=== PATIENT | male | born 1980 | race African-American/Black ===

== ENCOUNTER 2018-04-30 08:24 | Emergency (ER) | payer SELFPAY ==
[2018-04-30 08:50] LABS: Absolute Lymphocytes (CBC) 1.6 K/uL (0.7-4.9); Absolute Monocytes 0.5 K/uL (0.1-1.3); Absolute Neutrophil 3.1 K/uL (1.8-8.0); Basophils % 0.7 % (0-1.3); Eosinophils % 9.2 % (0-4.4); Hematocrit 45.1 % (39.6-49.0); Lymphocytes % 28.3 % (15.3-44.8); MPV 7.7 fL (7.6-11.3); Monocytes % 8.5 % (3.3-12.3)
[2018-04-30 08:52] LABS: Protime INR 0.91
--- NOTE | 2018-04-30 09:06 | RAD REPORT ---
EXAM DESCRIPTION: CT - Head Brain Wo Cont - 04/30/2018 8:46 am CLINICAL HISTORY: Headache, hypertension, slurred speech COMPARISON: None. TECHNIQUE: Axial 5 mm thick images of the head were obtained without IV contrast. All CT scans are performed using dose optimization technique as appropriate and may include automated exposure control or mA/KV adjustment according to patient size. FINDINGS: No intracranial hemorrhage, mass, edema or shift of mid-line structures. No acute infarcti on changes seen. No abnormal extra-axial fluid collections. Ventricles are normal. Mastoid air cells and visualized portions of the paranasal sinuses are clear. No acute bony findings. IMPRESSION: Negative non-contrast CT head examination.
[2018-04-30 09:08] LABS: BUN Blood Urea Nitrogen 17 mg/dL (7-18); Bicarbonate 26 mmol/L (21-32); Glucose Level 103 mg/dL (74-106); Magnesium 2.1 mg/dL (1.8-2.4); NT PRO-BNP 20 pg/mL (<125); Potassium 4.1 mmol/L (3.5-5.1); Sodium Level 140 mmol/L (136-145); Troponin (Emerg Dept Use Only) < 0.02 ng/mL (0.0-0.045)
--- NOTE | 2018-04-30 09:41 | EKG ---
Test Date: 2018-04-30 Test Time: 08:49:36 Leather Currier: NANDINI MEASUREMENT RESULTS: Intervals: Rate: 60 MT: 172 QRSD: 86 QT: 368 QTc: 368 Iola: P: 71 MT: 172 QRS: 85 T: 75 INTERPRETIVE STATEMENTS: Normal sinus rhythm Normal ECG No previous ECG available for comparison Electronically Signed On 04-30-18 09:40:38 ADDRESSER by Chuckie Adams
[2018-04-30] MEDS ORDERED: GABAPENTIN 300 MG CAP ONE (11:04)
--- NOTE | 2018-04-30 11:12 | RAD REPORT ---
EXAM DESCRIPTION: RAD - Chest Single View - 04/30/2018 9:15 am CLINICAL HISTORY: Chest pain COMPARISON: None. TECHNIQUE: AP portable chest image was obtained 0854 hours . FINDINGS: Lungs are clear. Heart and vasculature are normal. No measurable pleural effusion and no p neumothorax. No acute bony abnormality seen. No acute aortic findings suspected. IMPRESSION: No acute cardiopulmonary process.
--- NOTE | 2018-04-30 11:14 | EDPHYS ---
Physician Documentation [facility] Name: Supriya Carmona Age: 37 yrs Sex: Male : 1980 Arrival Date: 04/30/2018 Time: 08:25 Bed 6 Private MD: None, None ED Physician Alec Jeong HPI: 04/30 08:44 This 37 yrs old Black Male presents to ER via Unassigned with complaints of Chest Pain. kb 08:44 The patient or guardian reports chest pain that is located primarily in the anterior kb chest wall, left. The pain does not radiate. Associated signs and symptoms: The patient has no apparent associated signs or symptoms. The chest pain is described as tightness. Duration: The patient or guardian reports multiple episodes, that wax and wane, with no pattern. Modifying factors: The symptoms are alleviated by nothing. the symptoms are aggravated by nothing. Severity of pain: At its worst the pain was moderate in the emergency department the pain has improved. The patient has not experienced similar symptoms in the past. The patient has not recently seen a physician. Pt c/o chest pain that has been intermittent for 2 weeks. Also reports numbness and pain in right arm for 2 months. States he came in today because he can't take it anymore, it's hard to use his right hand.. Historical: - Allergies: 08:45 No Known Allergies; ss - Home Meds: 08:45 aspirin 81 mg Oral TbEC 1 tab once daily [Active]; ss - PMHx: 08:45 ADD/ADHD; ss - PSHx: 08:45 None; ss - Immunization history:: Adult Immunizations up to date. - Social history:: Smoking status: Patient uses tobacco products, denies chronic smoking, but will smoke occasionally. - Ebola Screening: : Patient denies exposure to infectious person Patient denies travel to an Ebola-affected area in the 21 days before illness onset. ROS: 08:44 Constitutional: Negative for fever, chills, and weight loss, ENT: Negative for injury, kb pain, and discharge, Neck: Negative for injury, pain, and swelling, Respiratory: Negative for shortness of breath, cough, wheezing, and pleuritic chest pain, Abdomen/GI: Negative for abdominal pain, nausea, vomiting, diarrhea, and constipation, Back: Negative for injury and pain, : Negative for injury, bleeding, discharge, and swelling, MS/Extremity: Negative for injury and deformity, Skin: Negative for injury, rash, and discoloration. 08:44 Cardiovascular: Positive for chest pain, Negative for edema, orthopnea, palpitations, paroxysmal nocturnal dyspnea. 08:44 Neuro: Positive for numbness, of the right arm. Exam: 08:44 Constitutional: This is a well developed, well nourished patient who is awake, alert, kb and in no acute distress. Head/Face: Normocephalic, atraumatic. ENT: Nares patent. No nasal discharge, no septal abnormalities noted. Tympanic membranes are normal and external auditory canals are clear. Oropharynx with no redness, swelling, or masses, exudates, or evidence of obstruction, uvula midline. Mucous membranes moist. Neck: Trachea midline, no thyromegaly or masses palpated, and no cervical lymphadenopathy. Supple, full range of motion without nuchal rigidity, or vertebral point tenderness. No Meningismus. Chest/axilla: Normal chest wall appearance and motion. Nontender with no deformity. No lesions are appreciated. Cardiovascular: Regular rate and rhythm with a normal S1 and S2. No gallops, murmurs, or rubs. Normal PMI, no JVD. No pulse deficits. Respiratory: Lungs have equal breath sounds bilaterally, clear to auscultation and percussion. No rales, rhonchi or wheezes noted. No increased work of breathing, no retractions or nasal flaring. Abdomen/GI: Soft, non-tender, with normal bowel sounds. No distension or tympany. No guarding or rebound. No evidence of tenderness throughout. Skin: Warm, dry with normal turgor. Normal color with no rashes, no lesions, and no evidence of cellulitis. MS/ Extremity: Pulses equal, no cyanosis. Neurovascular intact. Full, normal range of motion. Neuro: Awake and alert, GCS 15, oriented to person, place, time, and situation. Cranial nerves II-XII grossly intact. Motor strength 5/5 in left extremities and RLE, 3/5 in Right hand. Sensory grossly intact. Cerebellar exam normal. Normal gait. Vital Signs: 08:45 BP 157 / 87; Pulse 67; Resp 15; Temp 97.3(TE); Pulse Ox 100% on R/A; Weight 107.95 kg; ss Height 5 ft. 10 in. (177.80 cm); Pain 7/10; 09:35 BP 132 / 89; Pulse 63; Resp 20; Pulse Ox 100% ; sv 10:22 BP 141 / 94; Pulse 72; Resp 16; Pulse Ox 99% ; sv 08:45 Body Mass Index 34.15 (107.95 kg, 177.80 cm) ss MDM: 08:28 Patient medically screened. kb 08:50 Data reviewed: vital signs, nurses notes. Data interpreted: Pulse oximetry: on room air kb is 100 %. Interpretation: normal. 11:03 Counseling: I had a detailed discussion with the patient and/or guardian regarding: the kb historical points, exam findings, and any diagnostic results supporting the discharge/admit diagnosis, lab results, radiology results, the need for outpatient follow up, a electric solderer, a neurologist, to return to the emergency department if symptoms worsen or persist or if there are any questions or concerns that arise at home. 04/30 08:32 Order name: Basic Metabolic Panel; Complete Time: 09:10 kb 04/30 08:32 Order name: CBC with Diff; Complete Time: 08:56 kb 04/30 08:32 Order name: Magnesium; Complete Time: 09:10 kb 04/30 08:32 Order name: NT PRO-BNP; Complete Time: 09:10 kb 04/30 08:32 Order name: PT-INR; Complete Time: 08:56 kb 04/30 08:32 Order name: Troponin (emerg Dept Use Only); Complete Time: 09:10 kb 04/30 08:32 Order name: XRAY Chest (1 view); Complete Time: 11:13 kb 04/30 08:32 Order name: EKG; Complete Time: 08:33 kb 04/30 08:32 Order name: Cardiac monitoring; Complete Time: 08:55 kb 04/30 08:32 Order name: EKG - Nurse/Tech; Complete Time: 08:56 kb 04/30 08:32 Order name: CT Head Brain wo Cont; Complete Time: 09:07 kb 04/30 10:20 Order name: EKG; Complete Time: 10:21 kb 04/30 10:20 Order name: Troponin (emerg Dept Use Only); Complete Time: 10:56 kb 04/30 08:32 Order name: IV Saline Lock; Complete Time: 08:55 kb 04/30 08:32 Order name: Labs collected and sent; Complete Time: 08:55 kb 04/30 08:32 Order name: O2 Per Protocol; Complete Time: 08:55 kb 04/30 08:32 Order name: O2 Sat Monitoring; Complete Time: 08:56 kb 04/30 10:20 Order name: EKG - Nurse/Tech; Complete Time: 11:14 kb Administered Medications: 10:53 Drug: Neurontin 300 mg Route: PO; sg 11:14 Follow up: Response: No adverse reaction sg Disposition: 05/01 07:33 Co-signature as Attending Physician, Alec Jeong MD I agree with the assessment and kdr plan of care. Disposition: 04/30/18 11:14 Discharged to Home. Impression: Chest pain, unspecified, Neuralgia and neuritis, unspecified. - Condition is Stable. - Discharge Instructions: Neuropathic Pain, Nonspecific Chest Pain, [id number]. - Prescriptions for Neurontin 300 mg Oral Capsule - take 1 capsule by ORAL route At bedtime; 20 capsule. Prednisone 20 mg Oral Tablet - take 1 tablet by ORAL route once daily for 5 days; 5 tablet. - Medication Reconciliation Form, Thank You Letter, Antibiotic Education, Prescription Opioid Use, Work release form form. - Follow up: Emergency Department; When: As needed; Reason: Worsening of condition. Follow up: Private Physician; When: 2 - 3 days; Reason: Recheck today's complaints, Continuance of care, Re-evaluation by your physician. Signatures: Dispatcher [employer] [facility] Cici Flores, SOUND DESIGNER-C SOUND DESIGNER-Phill Isidro RN RN Alec Connell MD MD [facility] Vargas RN RN ss Corrections: (The following items were deleted from the chart) 04/30 11:26 11:14 04/30/2018 11:14 Discharged to Home. Impression: Chest pain, unspecified; sg Neuralgia and neuritis, unspecified. Condition is Stable. Discharge Instructions: Neuropathic Pain, Nonspecific Chest Pain, [id number]. Forms are Medication Reconciliation Form, Thank You Letter, Antibiotic Education, Prescription Opioid Use. Follow up: Emergency Department; When: As needed; Reason: Worsening of condition. Follow up: Private Physician; When: 2 - 3 days; Reason: Recheck today's complaints, Continuance of care, Re-evaluation by your physician. kb
--- NOTE | 2018-04-30 11:14 | ER ---
Nurse's Notes [facility] Name: Supriya Carmona Age: 37 yrs Sex: Male : 1980 Arrival Date: 04/30/2018 Time: 08:25 Bed 6 Private MD: None, None Diagnosis: Chest pain, unspecified;Neuralgia and neuritis, unspecified Presentation: 04/30 08:35 Presenting complaint: Patient states: Intermittent R arm pain and tingling x " a few ss months" and intermittent substernal chest discomfort x 1 week. Transition of care: patient was not received from another setting of care. Onset of symptoms is unknown. Risk Assessment: Do you want to hurt yourself or someone else? Patient reports no desire to harm self or others. Initial Sepsis Screen: Does the patient meet any 2 criteria? No. Patient's initial sepsis screen is negative. Does the patient have a suspected source of infection? No. Patient's initial sepsis screen is negative. Care prior to arrival: None. 08:35 Method Of Arrival: Ambulatory ss 08:35 Acuity: ROB 3 ss Historical: - Allergies: 08:45 No Known Allergies; ss - Home Meds: 08:45 aspirin 81 mg Oral TbEC 1 tab once daily [Active]; ss - PMHx: 08:45 ADD/ADHD; ss - PSHx: 08:45 None; ss - Immunization history:: Adult Immunizations up to date. - Social history:: Smoking status: Patient uses tobacco products, denies chronic smoking, but will smoke occasionally. - Ebola Screening: : Patient denies exposure to infectious person Patient denies travel to an Ebola-affected area in the 21 days before illness onset. Screenin:55 Abuse screen: Denies threats or abuse. Denies injuries from another. Nutritional sg screening: No deficits noted. Tuberculosis screening: No symptoms or risk factors identified. Never had TB. Fall Risk None identified. Assessment: 08:56 Reassessment: Patient appears in no apparent distress at this time. General: Appears in sg no apparent distress. comfortable, well groomed, well developed, well nourished, Behavior is calm, cooperative, appropriate for age. Pain: Complains of pain in chest Pain radiates to right arm Quality of pain is described as tingling. Neuro: Level of Consciousness is awake, alert, obeys commands, Oriented to person, place, time, situation, Microbiology Lab Assistant are equal bilaterally Moves all extremities. Full function Gait is steady, Speech is normal, Facial symmetry appears normal, Pupils are PERRLA, Reports tingling in right arm, and right hand that started about two weeks ago. Cardiovascular: Capillary refill is brisk in bilateral fingers Patient's skin is warm and dry. Chest pain is described as vague. Respiratory: Airway is patent Respiratory effort is even, unlabored, Respiratory pattern is regular, symmetrical, Denies cough, shortness of breath labored breathing, pain with respiration, pain with cough, pain with movement, air hunger. GI: No signs and/or symptoms were reported involving the gastrointestinal system. : No signs and/or symptoms were reported regarding the genitourinary system. EENT: Throat is clear. Derm: Skin is pink, warm \\T\\ dry. Musculoskeletal: No signs and/or symptoms reported regarding the musculoskeletal system. Vital Signs: 08:45 BP 157 / 87; Pulse 67; Resp 15; Temp 97.3(TE); Pulse Ox 100% on R/A; Weight 107.95 kg; ss Height 5 ft. 10 in. (177.80 cm); Pain 7/10; 09:35 BP 132 / 89; Pulse 63; Resp 20; Pulse Ox 100% ; sv 10:22 BP 141 / 94; Pulse 72; Resp 16; Pulse Ox 99% ; sv 08:45 Body Mass Index 34.15 (107.95 kg, 177.80 cm) ED Course: 08:25 Patient arrived in ED. sb2 08:27 None, None is Private Physician. sb2 08:28 Cici Flores FNP-C is [facility]. kb 08:28 Alec Jeong MD is Attending Physician. kb 08:40 Initial lab(s) drawn, by me, sent to lab. Inserted saline lock: 20 gauge in right sg antecubital area, using aseptic technique. Blood collected. Patient maintains SpO2 saturation greater than 95% on room air. 08:[address] via stretcher. sv 08:44 Phill Buckley, CHRISTOPHE is Primary Nurse. sg 08:45 Triage completed. ss 08:45 Arm band placed on right wrist. ss 08:46 CT Head Brain wo Cont In Process Unspecified. EDMS 08:55 X-ray(s) taken. sv 09:15 XRAY Chest (1 view) Sent. sv 09:16 XRAY Chest (1 view) In Process Unspecified. EDMS 09:36 Awaiting radiology results. sv 10:20 Repeat lab(s) drawn. by ky, sent to lab. sg Administered Medications: 10:53 Drug: Neurontin 300 mg Route: PO; sg 11:14 Follow up: Response: No adverse reaction sg Outcome: 11:14 Discharge ordered by . kb 11:26 Patient left the ED. sg Signatures: Dispatcher [employer] [facility] Cici Flores, RECLAMATION FURNACE OPERATOR-C RECLAMATION FURNACE OPERATOR-Gavi Holland, RN RN Phill Lopez RN RN sg Smirch, Shelby, RN RN ss Billeau, Sheri sb2
--- NOTE | 2018-04-30 17:17 | EKG ---
Test Date: 2018-04-30 Test Time: 11:02:42 Production Control Technologist: [place] MEASUREMENT RESULTS: Intervals: Rate: 58 LA: 158 QRSD: 80 QT: 378 QTc: 371 Butler: P: 42 LA: 158 QRS: 64 T: 52 INTERPRETIVE STATEMENTS: Sinus bradycardia Otherwise normal ECG Compared to ECG 04/30/2018 08:49:36 Sinus rhythm no longer present Electronically Signed On 04-30-18 17:16:06 INDIVIDUAL SMALL GROUP INSTRUCTOR by Chuckie Adams
== END 2018-04-30 11:26 | disposition home or self-care (01) ==
LOC: ER 08:24
DX: M79.2 Neuralgia and neuritis, unspecified (principal); Z79.82 Long term (current) use of aspirin
CPT/HCPCS: 36415; 70450; 71045; 80048; 83735; 83880; 84484; 85025; 85610; 93005; 99285

== ENCOUNTER 2024-02-10 07:00 | Inpatient (IN) | payer BC ==
[2024-02-10] MEDS ORDERED: DIPHENHYDRAMINE 50 MG/ML VIAL ONE (07:12)
[2024-02-10] MEDS ORDERED: EPINEPHRINE 1 MG/ML VIAL ONE (07:12)
[2024-02-10] MEDS ORDERED: METHYLPREDNISOLONE 125 MG INJ ONE (07:12)
[2024-02-10] MEDS ORDERED: FAMOTIDINE 20 MG/2 ML VIAL IV ONE (07:12)
[2024-02-10] MEDS ORDERED: TRANEXAMIC ACID 1,000 MG/10 ML VIAL IV ONE (07:44)
[2024-02-10] MEDS ORDERED: NA CHLORIDE 0.9% 100 ML ONE (07:44)
[2024-02-10 08:05] LABS: Absolute Eosinophils 0.2 K/uL (0-0.5); Absolute Lymphocytes (CBC) 1.7 K/uL (0.7-4.9); Absolute Monocytes 0.4 K/uL (0.1-1.3); Absolute Neutrophil 5.2 K/uL (1.8-8.0); Basophils % 0.6 % (0-1.3); Hematocrit 43.9 % (39.6-49.0); Hemoglobin 14.7 g/dL (13.6-17.9); Lymphocytes % 22.9 % (15.3-44.8); MCH 29.8 pg (27.0-35.0); MCHC 33.4 g/dL (32.0-36.0); MCV 89.3 fL (80-100); MPV 7.1 fL (7.6-11.3); Monocytes % 5.9 % (3.3-12.3); Neutrophils % 68.6 % (41.7-73.7); Nucleated Red Blood Cells % 0.1 % (0-0); Platelets 365 thou/uL (152-406); RBC Red Blood Cell Count 4.92 M/uL (4.33-5.43)
[2024-02-10 08:08] LABS: Anion Gap 7.8 mEq/L (5.0-15.0); Potassium 3.8 mEq/L (3.5-5.1)
--- NOTE | 2024-02-10 09:30 | ER ---
Nurse's Notes [facility] Name: Supriya Carmona Age: 43 yrs Sex: Male : 1980 Arrival Date: 02/10/2024 Time: 07:00 Bed 14 Private MD: Diagnosis: Adverse effect of dkshoclahyh-crsbnomirl-rjgyon inhibitors;Angioedema Presentation: 02/09 07:25 Chief complaint: Patient states: INCREASED LIP AND MOUTH SWELLING SINCE LAST PM WITH bp "SCRATCHY THROAT". Coronavirus screen: At this time, the client does not indicate any symptoms associated with coronavirus-19. Ebola Screen: No symptoms or risks identified at this time. Onset: The symptoms/episode began/occurred gradually. Anaphylaxis evaluation, the patient reports or I have noted the following symptoms which indicate a significant risk of anaphylaxis: angioedema. Initial Sepsis Screen: Does the patient meet any 2 criteria? No. Patient's initial sepsis screen is negative. Does the patient have a suspected source of infection? No. Patient's initial sepsis screen is negative. Risk Assessment: Do you want to hurt yourself or someone else? Patient reports no desire to harm self or others. Onset of symptoms was February 09, 2024 at 18:30. 07:25 Method Of Arrival: Ambulatory bp 07:25 Acuity: ROB 2 bp 07:26 Coronavirus screen: At this time, the client does not indicate any symptoms associated iw with coronavirus-19. Ebola Screen: No symptoms or risks identified at this time. Anaphylaxis evaluation, angioedema. Initial Sepsis Screen: Does the patient meet any 2 criteria? No. Patient's initial sepsis screen is negative. Does the patient have a suspected source of infection? No. Patient's initial sepsis screen is negative. Risk Assessment: Do you want to hurt yourself or someone else? Patient reports no desire to harm self or others. 07:26 Acuity: ROB 2 iw 07:26 Method Of Arrival: Ambulatory iw Triage Assessment: 07:27 General: Appears distressed, uncomfortable, obese, Behavior is cooperative, appropriate bp for age, anxious. Pain: Denies pain. EENT: Oral mucosa is dry. ANGIOEDEMA. Neuro: No deficits noted. Cardiovascular: No deficits noted. Respiratory: No deficits noted. GI: No signs and/or symptoms were reported involving the gastrointestinal system. : No signs and/or symptoms were reported regarding the genitourinary system. Derm: No deficits noted. Musculoskeletal: No deficits noted. Historical: - Allergies: 07:27 No Known Allergies; bp - Home Meds: 07:27 amlodipine oral [Active]; Lisinopril Oral [Active]; carvedilol oral [Active]; bp - PMHx: 07:27 ADD/ADHD; Hypertensive disorder; bp - Immunization history:: Adult Immunizations up to date. - Infectious Disease History:: Denies. - Social history:: Smoking status: Patient denies any tobacco usage or history of. Screenin:34 [facility] ED Fall Risk Assessment (Adult) History of falling in the last 3 months, iw including since admission No falls in past 3 months (0 pts) Confusion or Disorientation No (0 pts) Intoxicated or Sedated No (0 pts) Impaired Gait No (0 pts) Mobility Assist Device Used No (0 pt) Altered Elimination No (0 pt) Score/Fall Risk Level 0 - 2 = Low Risk Oriented to surroundings, Maintained a safe environment. Abuse screen: Denies threats or abuse. Nutritional screening: No deficits noted. Tuberculosis screening: No symptoms or risk factors identified. Assessment: 07:18 General: Appears in no apparent distress. Behavior is cooperative. Pain: Complains of iw pain in face. Respiratory: Airway is patent Respiratory effort is even, unlabored, GI: Abdomen is non-distended. Derm: Derm: Skin is pink, warm \\T\\ dry. normal, lip swelling. Musculoskeletal: Range of motion: intact in all extremities. 08:20 Reassessment: Patient appears in no apparent distress at this time. Patient and/or iw family updated on plan of care and expected duration. Pain level reassessed. Patient is alert, oriented x 3, equal unlabored respirations, skin warm/dry/pink. 10:30 Reassessment: Patient appears in no apparent distress at this time. No changes from cm10 previously documented assessment. Patient and/or family updated on plan of care and expected duration. Pain level reassessed. Patient is alert, oriented x 3, equal unlabored respirations, skin warm/dry/pink. General: Appears in no apparent distress. comfortable, Behavior is calm, cooperative. Respiratory: No deficits noted. Airway is patent Respiratory effort is even, unlabored, Respiratory pattern is regular, symmetrical. Derm: Swelling noted to patient's lips. 11:13 General: FFP transfusion started at this time.. cm10 15:37 General: Attempted to call report, per Vasiliy in ICU, bed is not ready yet.. cm10 Vital Signs: 07:16 BP 127 / 86; Pulse 80; Resp 16; Pulse Ox 97% on R/A; iw 11:00 BP 123 / 84; Pulse 80; Resp 16; Pulse Ox 92% on R/A; cm10 11:30 BP 119 / 84; Pulse 80; Resp 16; Pulse Ox 92% on R/A; cm10 11:45 BP 126 / 77; Pulse 79; Resp 19; Pulse Ox 94% on R/A; cm10 12:30 BP 123 / 82; Pulse 82; Resp 19; Pulse Ox 93% ; cm10 13:00 BP 116 / 75; Pulse 84; Resp 19; Pulse Ox 93% ; cm10 14:00 BP 124 / 74; Pulse 80; Resp 19; Pulse Ox 95% on R/A; cm10 ED Course: 07:08 Patient arrived in ED. al5 07:08 Jose Enrique Torres DO is Attending Physician. ms3 07:09 Josseline Ba, RN is Primary Nurse. iw 07:15 Inserted saline lock: 20 gauge in right antecubital area, using aseptic technique. iw ,using aseptic technique. IV inserted by CHRISTOPHE Wilcox Flushed with 10 mL NS. 07:26 Triage completed. iw 07:27 Arm band placed on. bp 07:45 BMP Sent. cc6 07:45 CBC with Diff Sent. cc6 07:47 Initial lab(s) drawn, by me, sent to lab. am7 09:03 Bb Add On Sent. zm 09:03 Type And Screen Sent. zm 09:03 T\\T\\S collected, blood band applied to patient. zm 09:29 Chirag Mullins MD is Hospitalizing Provider. ms3 10:03 No provider procedures requiring assistance completed. iw 10:03 Patient has correct armband on for positive identification. Client placed on continuous iw cardiac and pulse oximetry monitoring. NIBP monitoring applied. nuclear monitoring technician on. 10:03 Provided Education on: FFP infusion. iw 10:41 Primary Nurse role handed off by Josseline Ba, RN cm10 10:41 Samantha Truong, RN is Primary Nurse. cm10 11:29 [id number] CM met with Mr. Carmona and his Abebe at the bedside in the ED exam ane room. Patient identified by name and . Demographic sheet confirmed. Patient states he lives with his in a single story home. He reports that prior to admission, he performs ADLs independently. No DME, no HH, No home oxygen or other medical services at this time. Patient reports he does not have an MPOA in place but does have a living will, he goes on to state, " She knows what I would want.", and points to Abebe at the bedside. His plan is to return home upon discharge and states he will transport him home. CM team will continue to follow and coordinate care during this hospital stay. 11:47 Report faxed at [phone]. Attempted to call X2 with no answer. cm10 14:18 Patient admitted, IV remains in place. cm10 Administered Medications: 07:21 Drug: diphenhydrAMINE IVP 50 mg IVP once Route: IVP; Site: right antecubital; iw 08:20 Follow up: Response: No adverse reaction iw 07:21 Drug: MethylPrednisoLONE IVP 125 mg IVP once Route: IVP; Site: right antecubital; iw 08:20 Follow up: Response: No adverse reaction iw 07:21 Drug: Famotidine IVP 20 mg IVP once; dilute with 10 mL 0.9% NaCl; give over 2 minutes iw Route: IVP; Site: right antecubital; 12:03 Follow up: Response: No adverse reaction cm10 07:21 Drug: EPINEPHrine 0.3 mg IM once Route: IM; Site: right deltoid; iw 10:04 Follow up: Response: No adverse reaction iw 07:45 Drug: tranexamic acid 1 grams IV at calculated rate once Route: IV; Rate: calculated iw rate; Site: right antecubital; 08:45 Follow up: IV Status: Completed infusion iw Medication: 07:19 VIS not applicable for this client. iw 11:43 Blood products: FFP X 1 unit given. Pt tolerated transfusion well. No S/S of cm10 transfusion reaction. See transfusion record. Outcome: 09:29 Decision to Hospitalize by Provider. ms3 14:18 Admitted to ER Hold. Please see [facility] for further documentation. cm10 14:18 Condition: stable 14:18 Instructed on the need for admit, 18:30 Patient left the ED. cm10 Signatures: Josseline Ba, RN RN iw Brenden San RN RN Jose Enrique Damon, DO VALADEZ ms3 Jenn Truong Clarissa, RN RN cm10 Zoey Bush RN RN al5 Akila Sierra cc6 Sirena Da Silva RN RN ane Muraira, Abigail am7 Corrections: (The following items were deleted from the chart) 11:46 11:43 Blood products: FFP X 1 unit given. cm10 cm10
--- NOTE | 2024-02-10 09:30 | EDPHYS ---
Physician Documentation [facility] Name: Supriya Carmona Age: 43 yrs Sex: Male : 1980 Arrival Date: 02/10/2024 Time: 07:00 Bed 14 Private MD: ED Physician Jose Enrique Torres HPI: 02/09 08:02 This 43 yrs old Black Male presents to ER via Ambulatory with complaints of Allergic ms3 Reaction. 08:02 43-year-old male with past medical history of ADD/ADHD, hypertension presents to the [facility] emergency department for swelling of his lips and dry mouth that has been ongoing for 13 hours and progressed through the night. Patient states his lips have mildly decreased since onset. Patient states he is having severe pain in his lips.. Historical: - Allergies: : No Known Allergies; bp - Home Meds: :27 amlodipine oral [Active]; Lisinopril Oral [Active]; carvedilol oral [Active]; bp - PMHx: :27 ADD/ADHD; Hypertensive disorder; bp - Immunization history:: Adult Immunizations up to date. - Infectious Disease History:: Denies. - Social history:: Smoking status: Patient denies any tobacco usage or history of. ROS: 08:23 Constitutional: Negative for fever, and chills. Neck: Negative for injury, pain, and ms3 swelling, Cardiovascular: Negative for chest pain, and palpitations. Respiratory: Negative for shortness of breath, cough, wheezing, and pleuritic chest pain, Abdomen/GI: Negative for abdominal pain, nausea, vomiting, diarrhea, and constipation, 08:23 ENT: Positive for lip swelling, Exam: 08:23 Constitutional: This is a well developed, well nourished patient who is awake, alert, ms3 and in no acute distress. 08:23 Cardiovascular: Regular rate and rhythm with a normal S1 and S2. No gallops, murmurs, or rubs. Normal PMI, no JVD. No pulse deficits. Respiratory: Lungs have equal breath sounds bilaterally, clear to auscultation and percussion. No rales, rhonchi or wheezes noted. No increased work of breathing, no retractions or nasal flaring. Abdomen/GI: Soft, non-tender, with normal bowel sounds. No distension or tympany. No guarding or rebound. No evidence of tenderness throughout. Skin: Warm, dry with normal turgor. Normal color with no rashes, no lesions, and no evidence of cellulitis. MS/ Extremity: Pulses equal, no cyanosis. Neurovascular intact. Full, normal range of motion. 08:23 ENT: Mouth: Lips: Upper and lower lip swelling, Vital Signs: 07:16 BP 127 / 86; Pulse 80; Resp 16; Pulse Ox 97% on R/A; iw 11:00 BP 123 / 84; Pulse 80; Resp 16; Pulse Ox 92% on R/A; cm10 11:30 BP 119 / 84; Pulse 80; Resp 16; Pulse Ox 92% on R/A; cm10 11:45 BP 126 / 77; Pulse 79; Resp 19; Pulse Ox 94% on R/A; cm10 12:30 BP 123 / 82; Pulse 82; Resp 19; Pulse Ox 93% ; cm10 13:00 BP 116 / 75; Pulse 84; Resp 19; Pulse Ox 93% ; cm10 14:00 BP 124 / 74; Pulse 80; Resp 19; Pulse Ox 95% on R/A; cm10 MDM: 07:20 Patient medically screened. ms3 08:23 Differential diagnosis: anaphylaxis, angioedema, Hereditary Angioedema. ms3 09:30 Data reviewed: vital signs, nurses notes, lab test result(s), and as a result, I will ms3 discharge patient. Consideration of Admission/Observation Patient was admitted/placed on observation. Management of patient was discussed with the following: Hospitalist: Dr Mullisn. I considered the following discharge prescriptions or medication management in the emergency department Medications were administered in the Emergency Department. See MAR. Care significantly affected by the following chronic conditions: Hypertension. Counseling: I had a detailed discussion with the patient and/or guardian regarding the historical points, exam findings, and any diagnostic results supporting the discharge/admit diagnosis, lab results, the need for further work-up and treatment in the hospital. ED course: Patient with mild improvement in his symptoms since arrival to the emergency department. Discussed case with hospitalist team and they accept patient to ICU to continue monitoring. Discussed plan with patient and he understands and agrees with plan. All questions were answered.. 02/09 07:21 Order name: CBC with Diff; Complete Time: 09:22 ms3 02/09 07:21 Order name: BMP; Complete Time: 09:22 ms3 02/09 07:37 Order name: Type And Screen ms3 02/09 07:52 Order name: Bb Add On ms3 02/09 09:20 Order name: Fresh Frozen Plasma EDMS 02/09 09:35 Order name: ABO/RH no charge; Complete Time: 17:25 EDMS Administered Medications: 07:21 Drug: diphenhydrAMINE IVP 50 mg IVP once Route: IVP; Site: right antecubital; iw 08:20 Follow up: Response: No adverse reaction iw 07:21 Drug: MethylPrednisoLONE IVP 125 mg IVP once Route: IVP; Site: right antecubital; iw 08:20 Follow up: Response: No adverse reaction iw 07:21 Drug: Famotidine IVP 20 mg IVP once; dilute with 10 mL 0.9% NaCl; give over 2 minutes iw Route: IVP; Site: right antecubital; 12:03 Follow up: Response: No adverse reaction cm10 07:21 Drug: EPINEPHrine 0.3 mg IM once Route: IM; Site: right deltoid; iw 10:04 Follow up: Response: No adverse reaction iw 07:45 Drug: tranexamic acid 1 grams IV at calculated rate once Route: IV; Rate: calculated iw rate; Site: right antecubital; 08:45 Follow up: IV Status: Completed infusion iw Disposition Summary: 02/10/24 09:29 Hospitalization Ordered Notes: Hospitalization Status: Observation ms3 Provider: Chirag Mullins ms3 Condition: Stable ms3 Problem: new ms3 Symptoms: are unchanged ms3 Bed/Room Type: Standard ms3 Location: Telemetry/MedSurg (Inpatient)(02/10/24 17:49) ja Room Assignment: 216(02/10/24 17:49) ja Diagnosis - Adverse effect of rhkoheoctwv-tqkqnfoqnw-qmbert inhibitors ms3 - Angioedema ms3 Forms: - Medication Reconciliation Form ms3 - SBAR form ms3 - Leadership Thank You Letter ms3 Critical care time excluding procedures: :31 Critical care time: Bedside Care: 40 minutes, Consultation: 5 minutes, Family ms3 Intervention: 5 minutes. Total time: 50 minutes Signatures: Dispatcher [employer] Crissy Cheung Irene, RN RN iw Aguilar, Jose, RN RN ja1 Brenden San, RN RN bp Jose Enrique Torres, DO ms3 Alejandrina Larsen, RN RN kb3 Samantha Truong RN cm10 Corrections: (The following items were deleted from the chart) 07:21 07:21 CBC+H.LAB.BRZ ordered. EDMS EDMS 07:21 07:21 BASIC METABOLIC PANEL+C.LAB.BRZ ordered. EDMS EDMS 07:37 07:37 TYPE AND SCREEN+BB.LAB.BRZ ordered. EDMS EDMS 11:11 09:29 Intensive Care Unit ms3 bd 11:11 09:29 ms3 bd 11:29 11:11 BR ER HOLD bd bd 11:29 11:11 ERHOLD- bd bd 12:05 11:29 Telemetry/MedSurg (observation) bd ja1 12:05 11:29 228 bd ja1 15:24 12:05 [facility] ER HOLD ja1 bd 15:24 12:05 ERHOLD- ja1 bd 15:52 15:24 Intensive Care Unit bd ja1 15:52 15:24 6- bd ja1 17:49 15:52 BR ER HOLD ja1 kb3 17:49 15:52 ERHOLD- ja1 kb3 17:49 17:49 Telemetry/MedSurg (observation) kb3 ja1 17:49 17:49 216 kb3 ja1
[2024-02-10] MEDS ORDERED: NA CHLORIDE 0.9% 250 ML ONE (11:04)
[2024-02-10] MEDS ORDERED: ONDANSETRON 4 MG/2 ML VIAL IV PRN (13:41)
[2024-02-10] MEDS: NA CHLORIDE 0.9% 1,000 ML IV SCH (13:41)
[2024-02-10] MEDS ORDERED: NICOTINE 21 MG/PAT TD ONE (13:50)
[2024-02-10] MEDS ORDERED: NA CHLORIDE 0.9% 1,000 ML ONE (13:50)
[2024-02-10] MEDS: NICOTINE 21 MG/PAT TD SCH (13:59)
[2024-02-10] MEDS ORDERED: NICOTINE 14 MG/PAT TD SCH (14:00)
[2024-02-10] MEDS ORDERED: DIPHENHYDRAMINE 25 MG TAB/CAP ONE (14:23)
[2024-02-10] MEDS: DIPHENHYDRAMINE 25 MG TAB/CAP PO SCH (14:27)
--- NOTE | 2024-02-10 14:37 | P.HP ---
Certification for Inpatient Patient admitted to: Inpatient With expected LOS: >2 Midnights Patient will require the following post-hospital care: None Practitioner: I am a practitioner with admitting privileges, knowledge of patient current condition, hospital course, and medical plan of care. Services: Services provided to patient in accordance with Admission requirements found in Title 42 Section 412.3 of the Code of Federal Regulations Patient History Date of Service: 02/10/24 Reason for admission: Angioedema History of Present Illness: 43-year-old male with history of hypertension, ADD presents to the emergency department with chief complaint of lip swelling. He reports his symptoms began last night about 20 minutes after eating [employer], he has had this happen maybe 4- 5 times in the past with unclear cause. He does take lisinopril although he has been taking the medication since around 2019, no changes in his medication for last 6 months or so. No significant angioedema affecting his lips, he said his tongue was feeling a bit swollen but this improved after receiving FFP, TXA was administered in the emergency department. Patient will be admitted to the ICU given the possible impending airway compromise Allergies No Known Allergies Allergy (Unverified 02/10/24 12:07) - Past Medical/Surgical History -: HTN -: ADD -: None Psychosocial/ Personal History: Works in [employer], lives at home with family - Family History Family History: Reviewed- Non-Contributory - Social History Alcohol use: No CD- Drugs: No Caffeine use: Yes Review of Systems 10-point ROS is otherwise unremarkable ENT: Mouth Swelling, Other (Lip swelling) Physical Examination - Physical Exam General: Alert, In no apparent distress, Oriented x3 HEENT: Atraumatic, PERRLA, EOMI Neck: Supple, 2+ carotid pulse no bruit, No LAD, Without JVD or thyroid abnormality Respiratory: Clear to auscultation bilaterally, Normal air movement Cardiovascular: Regular rate/rhythm, Normal S1 S2 Gastrointestinal: Normal bowel sounds, No tenderness Musculoskeletal: No tenderness Integumentary: No rashes Neurological: Normal speech, Normal strength at 5/5 x4 extr, Normal tone, Normal affect - Studies Laboratory Data (last 24 hrs) 02/10/24 02/10/24 07:41 07:41 WBC 7.60 Hgb 14.7 Hct 43.9 Plt Count 365 Sodium 136 Potassium 3.8 BUN 14 Creatinine 1.04 Glucose 102 Assessment and Plan - Plan Assessment: Angioedema HTN Tobacco use disorder Plan: Angioedema Patient will be admitted to the ICU given the possibility of impending airway compromise Hold lisinopril, patient has been on this medication since 2019 but it could be contributing Patient reports episodes typically start after eating various foods, this time it was about 20 minutes after eating a [employer] sandwich Symptoms improving after FFP, TXA, epinephrine, antihistamines Scheduled Benadryl, Pepcid, prednisone HTN Continue home medications aside from lisinopril Tobacco use disorder Counseled on need for cessation, NicoDerm patch ordered DVT PPX: Lovenox Code status:full Discharge Plan: Home Plan to discharge in: 48 Hours - Advance Directives Does patient have a Living Will: No Does patient have a Durable POA for Healthcare: No - Code Status/Comfort Care Code Status Assessed: Yes (Full code) Critical Care: No Time Spent Managing Pts Care (In Minutes): 61
[2024-02-10 14:38] VITALS: BMI 36.7
[2024-02-10 18:47] VITALS: O2SAT 95
[2024-02-10] MEDS: predniSONE 20 MG TAB PO SCH (20:06)
[2024-02-10] MEDS: ENOXAPARIN 40 MG/0.4 ML SQ SCH (20:06)
[2024-02-10] MEDS: FAMOTIDINE 20 MG/2 ML VIAL IV SCH (20:07)
[2024-02-11 04:38] LABS: Absolute Eosinophils 0.1 K/uL (0-0.5); Absolute Lymphocytes (CBC) 0.6 K/uL (0.7-4.9); Absolute Neutrophil 15.2 K/uL (1.8-8.0); Basophils % 0.2 % (0-1.3); Eosinophils % 0.3 % (0-4.4); Hematocrit 42.9 % (39.6-49.0); Hemoglobin 13.8 g/dL (13.6-17.9); Lymphocytes % 3.6 % (15.3-44.8); MCH 29.1 pg (27.0-35.0); MCV 90.7 fL (80-100); MPV 7.4 fL (7.6-11.3); Monocytes % 5.6 % (3.3-12.3); Neutrophils % 90.3 % (41.7-73.7); Platelets 376 thou/uL (152-406); RBC Red Blood Cell Count 4.73 M/uL (4.33-5.43); Red Cell Distribution Width 14.1 % (12.1-15.2)
[2024-02-11 04:47] LABS: Anion Gap 6.6 mEq/L (5.0-15.0)
[2024-02-11 04:49] LABS: Potassium 4.6 mEq/L (3.5-5.1)
[2024-02-11 05:05] LABS: Band Neutrophils 13 % (0-1); Differential Total Cells Count 100; Lymphocytes 4 % (15-42); Segmented Neutrophils 83 % (40-80)
[2024-02-11 05:06] LABS: Blood Morphology Comment NOT SEEN (NOT SEEN); Monocytes 0 % (0-10); Platelet Estimate ADEQ
[2024-02-11 12:50] VITALS: BP 138/75; TEMP 99.6
--- NOTE | 2024-02-11 15:12 | P.DS ---
Admission Date: 02/10/24 Discharge Date: 02/11/24 Disposition: ROUTINE DISCHARGE Discharge Condition: GOOD Reason for Admission: Angioedema Brief History of Present Illness: Diagnosis Angioedema HTN Tobacco use disorder HPI 02/10/2024 Supriya Carmona is a 43-year-old male with history of hypertension, ADD presents to the emergency department with chief complaint of lip swelling. He reports his symptoms began last night about 20 minutes after eating [employer], he has had this happen maybe 4-5 times in the past with unclear cause. He does take lisinopril although he has been taking the medication since around 2019, no changes in his medication for last 6 months or so. No significant angioedema affecting his lips, he said his tongue was feeling a bit swollen but this improved after receiving FFP, TXA was administered in the emergency department. Patient will be admitted to the ICU given the possible impending airway compromise Hospital Course: Supriya Carmona is a pleasant 43 year old female with a past medical history significant for hypertension and ADD who was admitted to the [facility] on 02/10/24 for angioedema. Supriya presented to the ED with severe swelling to his lips, nose, and face. The ED administered benadryl, Steroids, TXA, and FFP with slight improvement. He reports having facial swelling intermittently but it usually resolved. This swelling episode was more than usual. He does take lisinopril which has been stopped and will require a follow up with PCP for continued investigations to these facial swelling episodes. Norvasc was started and education to check his blood pressure daily was provided. His swelling has decreased significantly since admission, he is tolerating PO diet, and ambulating independently without difficulty. On 02/11/24, Supriya was seen on morning rounds and deemed medically stable for discharge home with family support. Supriya was discharged with instructions to schedule follow-up appointments with PCP. Supriya was provided prescriptions for prednisone, Benadryl, Norvasc. Physical Exam General: Alert and Oriented x3, NAD HEENT: Atraumatic, PERRLA, EOMI Neck: Supple, 2+ carotid pulse no bruit, No LAD, Without JVD or thyroid abnormality Respiratory: Clear to auscultation bilaterally, Normal air movement, symmetrical chest wall movement Cardiovascular: RRR, Normal S1 S2, no murmur noted Gastrointestinal: Normal bowel sounds, No tenderness, Soft and benign on palpation Musculoskeletal: No tenderness Integumentary: No rashes Neurological: Normal speech, Normal strength at 5/5 x4 extr, Normal tone, Normal affect Vital Signs/Physical Exam: Temp Pulse Resp BP Pulse Ox 99.6 F 90 16 138/75 96 02/11/24 12:00 02/11/24 12:00 02/11/24 12:00 02/11/24 12:00 02/11/24 12:00 Laboratory Data at Discharge: WBC 16.90 thou/uL (4.3-10.9) H 02/11/24 04:16 Hgb 13.8 g/dL (13.6-17.9) 02/11/24 04:16 Hct 42.9 % (39.6-49.0) 02/11/24 04:16 Plt Count 376 thou/uL (152-406) 02/11/24 04:16 Sodium 138 mEq/L (136-145) 02/11/24 04:16 Potassium 4.6 mEq/L (3.5-5.1) D 02/11/24 04:16 BUN 20 mg/dL (7-18) H 02/11/24 04:16 Creatinine 1.33 mg/dL (0.70-1.30) H 02/11/24 04:16 Glucose 215 mg/dL (74-106) H 02/11/24 04:16 Home Medications: Atorvastatin Calcium 10 mg PO DAILY 02/10/24 Carvedilol [Coreg] 3.125 mg PO BID 02/10/24 Amlodipine [Norvasc*] 10 mg PO DAILY 30 Days #30 tab 02/11/24 Diphenhydramine [Benadryl*] 25 mg PO Q6H 10 Days #40 tab 02/11/24 predniSONE [Prednisone*] 20 mg PO DAILY 3 Days #3 tab 02/11/24 New Medications: Diphenhydramine [Benadryl*] 25 mg PO Q6H 10 Days #40 tab Amlodipine [Norvasc*] 10 mg PO DAILY 30 Days #30 tab predniSONE [Prednisone*] 20 mg PO DAILY 3 Days #3 tab Physician Discharge Instructions: 1. Please call and schedule a follow-up appointment with your PCP in 3-5 days - Please follow-up with your PCP for medication refills/adjustments 2. Continue heart healthy diet 3. no activity restrictions 4. Return to the ED if symptoms worsen New medications Amlodipine 10 mg daily Prednisone 20 mg daily x 3 days Benadryl 25 mg every 6 hours x 10 days, as needed Stop medications lisinopril Diet: AHA Activity: Ad chava Followup: Torie Liz MD [Primary Care Provider] - 1-2 Weeks
== END 2024-02-11 16:24 | disposition home or self-care (01) | DRG 916 ==
LOC: ER 07:00 → ERHOLD 09:49 → 2ND 11:46 → ERHOLD 12:05 → 3RD-ICU 15:38 → ERHOLD 15:53 → 2ND 18:06
PROVIDERS: ADMIT Hospitalist; ATTEND Internal Medicine
DX: T78.3XXA Angioneurotic edema, initial encounter (principal); F90.9 Attention-deficit hyperactivity disorder, unspecified type; I10 Essential (primary) hypertension; T44.5X5A Adverse effect of predominantly beta-adrenoreceptor agonists, initial encounter; F17.200 Nicotine dependence, unspecified, uncomplicated; Z71.6 Tobacco abuse counseling; Z79.52 Long term (current) use of systemic steroids; Z79.02 Long term (current) use of antithrombotics/antiplatelets; Z79.899 Other long term (current) drug therapy
CPT/HCPCS: 36415; 36430; 80048; 85025; 86850; 86900; 86901; 96365; 96372; 96375; 99285; J0171; J1200; J1650; J2919; J7030; J7050; J7512; P9059